=== PATIENT | male | born 1965 | race Caucasian/White ===

== ENCOUNTER 2022-01-11 12:02 | Emergency (ER) | payer OTHER ==
[~2022-01-11] VITALS: Ht 180.3 cm; Wt 100.0 kg
[2022-01-11 12:09] VITALS: BP 139/96; TEMP 98.2
[2022-01-11] MEDS ORDERED: CEPHALEXIN500 M1 PO (13:06)
[2022-01-11 13:20] VITALS: PULSE 74
== END 2022-01-11 13:20 | disposition home or self-care (01) ==
LOC: COL.ER 12:02
DX: S81.811A Laceration without foreign body, right lower leg, initial encounter (principal); F17.210 Nicotine dependence, cigarettes, uncomplicated; Z23 Encounter for immunization; W01.198A Fall on same level from slipping, tripping and stumbling with subsequent striking against other object, initial encounter; Y92.59 Other trade areas as the place of occurrence of the external cause; Y99.0 Civilian activity done for income or pay

== ENCOUNTER → 2022-01-21 | Outpatient (CLI) | payer OTHER ==
[~2022-01-21] MED LIST: CEPHALEXIN500 M1 PO
[2022-01-21 16:15] VITALS: BP 122/74; PULSE 80; TEMP 97.3
== END ==
LOC: COL.ER 16:05
DX: Z48.02 Encounter for removal of sutures (principal)